=== PATIENT | female | born 1985 | race Caucasian/White ===

== ENCOUNTER 2018-07-15 19:22 | Inpatient (IN) | payer MEDICAID ==
--- NOTE | 2018-07-15 20:29 | ED PDOC ---
HPI: Psych/Substance Abuse Time Seen by Provider: 07/15/18 19:34 Chief Complaint (Nursing): Psychiatric Evaluation Chief Complaint (Provider): Psychiatric Evaluation History Per: EMS History/Exam Limitations: clinical condition Onset/Duration Of Symptoms: Hrs Current Symptoms Are (Timing): Still Present Modifying Factor(s): Alcohol Associated Symptoms: Depression, Suicidal Thoughts, Suicidal Plan Additional Complaint(s): 32 year old female with a history of of depression presents to the ED for a psychiatric evaluation. Patient was found on the ground crying and vomiting by her who arrived home from work at 6pm. Patient took unknown quantity of ibuprofen, Aleve, and Fenofibrate. She also took shots of whisky in an attempt to kill herself. It is unknown of what time she took the medications and unknown if she took any other medication or drugs. PMD: Dr. Muhammad Past Medical History Reviewed: Historical Data, Nursing Documentation, Vital Signs Vital Signs: Last Vital Signs Temp 98.9 F 07/15/18 19:27 Pulse 124 H 07/15/18 19:27 Resp 16 07/15/18 19:27 BP 145/98 H 07/15/18 19:27 Pulse Ox 99 07/15/18 19:27 - Medical History PMH: Depression - Family History Family History: States: Unknown Family Hx - Home Medications Home Medications: Ambulatory Orders Medication Instructions Recorded RX: No Known Home Med 07/15/18 - Allergies Allergies/Adverse Reactions: Allergies Allergy/AdvReac Type Severity Reaction Status Date / Time Penicillins Allergy RASH Verified 07/16/18 03:30 Review of Systems Review Of Systems: ROS cannot be obtained secondary to pt's inabilty to answer questions. Physical Exam - Reviewed Nursing Documentation Reviewed: Yes Vital Signs Reviewed: Yes - Physical Exam Appears: Positive for: In Acute Distress (crying, retching in ER) Head Exam: Positive for: ATRAUMATIC, NORMOCEPHALIC Skin: Positive for: Warm, Dry Eye Exam: Positive for: EOMI, PERRL, Conjunctival injection ENT: Positive for: Pharynx Is (clear) Neck: Positive for: Painless ROM, Supple Cardiovascular/Chest: Positive for: Tachycardia. Negative for: Murmur Respiratory: Positive for: Normal Breath Sounds. Negative for: Respiratory Distress Gastrointestinal/Abdominal: Positive for: Normal Exam, Soft. Negative for: Tenderness, Guarding, Rebound Back: Positive for: Normal Inspection. Negative for: Muscle Spasm Extremity: Positive for: Normal ROM. Negative for: Deformity Lymphatic: Negative for: Adenopathy Neurologic/Psych: Positive for: Alert, Other (depressed mood ). Negative for: Motor/Sensory Deficits - Laboratory Results Result Diagrams: 07/16/18 07:35 07/15/18 20:23 - ECG O2 Sat by Pulse Oximetry: 99 (RA) Pulse Ox Interpretation: Normal Medical Decision Making Medical Decision Making: Time: 1938 Initial Impression: depression, medication overdose VBG shock EKG Acetaminophen Alcohol serum CMP Drug screen Lipase Magnesium Phosphorous Salicylate Poison control ED urine ED urine dipstick CBC w/ differential PTT Prothrombin time Glucose, Poc, Blood Normal Saline 100 mls/hr Pepcid 20mg Zofran Inj traffic monitor specialist IV insertion 1:1 observation Call poison control Reevaluation Poison center called by FRANCINE Tapia. Recommendations given. 10p Per Poison Center, after reviewing results, case closed. On reevaluation, pt appear to be comfortable and no longer vomiting. However she continues to stay quiet when I ask questions concerning events tonight and maintains almost no eye contact. Labs with no significant abnormalities. Stable for psychiatric evaluation. [address] Tan, pending crisis evaluation. Scribe Attestation: Documented by Terra Nicolas, acting as a scribe for Marielena Stevens MD Provider Scribe Attestation: All medical record entries made by the Scribe were at my direction and personally dictated by me. I have reviewed the chart and agree that the record accurately reflects my personal performance of the history, physical exam, medical decision making, and the department course for this patient. I have also personally directed, reviewed, and agree with the discharge instructions and disposition. Disposition - Clinical Impression Clinical Impression: Depression - Patient ED Disposition Is Patient to be Admitted: Transfer of Care (to Dr. Tan) - Disposition Disposition: Transfer of Care Disposition Time: 23:00 Condition: STABLE
[2018-07-15 20:31] LABS: BASO % 0.6 % (0.0-2.0); EOS % 0.2 % (0.0-4.0); LYMPH # 1.3 K/uL (1.0-4.3); LYMPH % 14.5 % (20.0-40.0); MEAN CELL VOLUME 90.8 fl (81.0-99.0); MEAN CORPUSCULAR HEMOGLOBIN 29.5 pg (27.0-31.0); MEAN CORPUSCULAR HGB CONC 32.5 g/dL (33.0-37.0); MEAN PLATELET VOLUME 8.8 fl (7.2-11.7); MONO # 0.4 K/uL (0.0-0.8); MONO % 4.1 % (0.0-10.0); NEUT # 7.1 K/uL (1.8-7.0); NEUT % 80.6 % (50.0-75.0); RBC 5.1 Mil/uL (3.80-5.20); RED CELL DISTRIBUTION WIDTH 15.1 % (11.5-14.5); WHITE BLOOD COUNT 8.8 K/uL (4.8-10.8)
[2018-07-15 20:32] LABS: VENOUS BLOOD GAS BASE EXCESS -3.8 mmol/L (0.0-2.0); VENOUS BLOOD GAS PCO2 39 mmHg (40-60); VENOUS BLOOD GAS PO2 39 mm/Hg (30-55); VENOUS BLOOD PH 7.35 (7.32-7.43)
[2018-07-15 20:47] LABS: INR 1.1; PROTHROMBIN TIME 12.5 Seconds (9.8-13.1)
[2018-07-15 20:48] LABS: ACETAMINOPHEN < 10.0 ug/ml (10.0-30.0); SALICYLATE < 1.0 mg/dl
[2018-07-15 20:50] LABS: PARTIAL THROMBOPLASTIN TIME 25.9 Seconds (25.6-37.1)
[2018-07-15 20:56] LABS: ALBUMIN 4.4 g/dL (3.5-5.0); ALT/SGPT 28 U/L (9-52); AST/SGOT 53 U/L (14-36); BLOOD UREA NITROGEN 12 mg/dl (7-17); CALCIUM 9.4 mg/dL (8.4-10.2); GFR NON-AFRICAN AMERICAN > 60; LIPASE 62 U/L (23-300)
[2018-07-15 22:30] LABS: SQUAMOUS EPITHIAL 5 /hpf (0-5); URINE BACTERIA MOD (<OCC); URINE BILIRUBIN NEGATIVE (NEGATIVE); URINE BLOOD SMALL (NEGATIVE); URINE CLARITY CLOUDY (Clear); URINE COLOR YELLOW (YELLOW); URINE GLUCOSE (UA) NEG (NEGATIVE); URINE LEUKOCYTE ESTERASE TRACE Leu/uL (Negative); URINE PROTEIN NEGATIVE (NEGATIVE); URINE UROBILINOGEN 0.2-1.0 mg/dL (0.2-1.0)
[2018-07-15 22:42] LABS: BARBITURATES, UR NEGATIVE (NEGATIVE); BENZODIAZEPINES, UR NEGATIVE (NEGATIVE); OPIATES, UR NEGATIVE (NEGATIVE); PHENCYCLIDINE, UR NEGATIVE (NEGATIVE)
--- NOTE | 2018-07-15 23:02 | ED PDOC ---
- Laboratory Results Result Diagrams: 07/15/18 20:23 07/15/18 20:23 - ECG O2 Sat by Pulse Oximetry: 99 (RA) Pulse Ox Interpretation: Normal Medical Decision Making Medical Decision Makin Patient endorsed by Dr. Stevens, pending crisis evaluation. [id number] Osman, the psychiatrist, to be admitted for depression. Scribe Attestation: Documented by Shaina Lee, acting as a scribe for Ryan Tan MD. Provider Scribe Attestation: All medical record entries made by the Scribe were at my direction and personally dictated by me. I have reviewed the chart and agree that the record accurately reflects my personal performance of the history, physical exam, medical decision making, and the department course for this patient. Disposition - Clinical Impression Clinical Impression: Depression - POA Present On Arrival: None - Disposition Disposition: Admitted as In-Patient Disposition Time: 01:19 Condition: STABLE
[2018-07-16] MEDS ORDERED: Magnesium Hydroxide Susp 30 ml UD PO PRN (03:00)
[2018-07-16] MEDS ORDERED: DiphenhydrAMINE 50 mg/ml Inj IM PRN (03:00)
[2018-07-16] MEDS ORDERED: Alum-Mag Hydrox-Simethicone Susp (30 mL) PO PRN (03:00)
--- NOTE | 2018-07-16 03:22 | PCM.BM ---
<TremaineBerna Jyoti - Last Filed: 07/16/18 03:20> Treatment Plan Problems - Problems identified on initial assessmt Mediaction nonadherence Date Initiated: 07/16/18 Time Initiated: 03:20 Assessment reference: NA Status: Active Self Harm Date Initiated: 07/16/18 Time Initiated: 03:21 Assessment reference: NA Status: Active Suicidal Ideation Date Initiated: 07/16/18 Time Initiated: 03:22 Assessment reference: NA Status: Active Hopelessness/Helplessness Date Initiated: 07/16/18 Time Initiated: 03:22 Assessment reference: NA Status: Active Altered Sleep Patterns Date Initiated: 07/16/18 Time Initiated: 03:23 Assessment reference: NA Status: Active Treatment assets and liabiliti Patient Assests: adapts well, cooperative, self-reliant, ADL independent, good support system, negotiates basic needs (Recent loss, Hx of depression) - Milieu Protocol Maintain good personal hygiene: daily Encourage regular showers, every shift Remind patient to perform daily oral care Conduct patient checks and document Observation sheet: Q15 minutes Maintain personal safety: every shift Educate patient to report safety concerns to staff, every shift Monitor environment for contraband/sharps Medication safety: Monitor for expected outcome, potential side effects: every shift, Assess barriers to learning: every shift, Assess readiness for medication education: every shift <Raj Calderon - Last Filed: 07/17/18 15:22> Family Contact Family involvement: Family/SO is involved Family contact: Patient agrees to contact, Family has been contacted by patient, Telephone contact initiated by staff Family contact name: Vashti - [phone] - Goals for Treatment Patient goals for treatment: Pt offered no goals for treatment at this time and is repeatedly asking to be discharged despite her impulsive attempt to end her life. Pt appears to lack insight into her stressors and is putting up yang to protect herself from confronting her emotions. Discharge/Continuing Care - Education Needs Education Needs: Patient Medication, Patient Diagnosis/Disease Process, Patient Coping Skills, Patient Community resources, Patient Aftercare Safety Plan - Discharge Discharge Criteria: Tolerates medication w/o severe side effects, Free of Suicidal thoughts, Normal sleep pattern, Reduction of target symptoms Discharge to:: Home, With Family - Treatment Team Participation Patient/Family/SO Statement: 07/17/18 16:14 Pt seen in treatment team on 07/17/18. Pt reported she is feeling "good." Chip [employer] hospital admissions clerk, Henny [id number], was used to translate in pt's [place] language. Pt remained guarded, superficial and discharge focused with cylinder press operator helper. Pt reported that the unit feels like long term and she wants to begin a new start with her life at home with her family. Pt again expressed remorse and was able to verbalize reasons to live. Anti-depressant and Abilify discussed and pt denied current side-effects. Pt denied current Si/HI and AVT hallucinations. Discussed with Family/SO: No Was Patient/Family/SO present at Treatment Team Meeting: Yes <Rayna Osman - Last Filed: 07/19/18 11:19> - Diagnosis (1) Depression Status: Acute Interventions: psychotherapy, pharmacotherapy 07/19/18 11:19
[2018-07-16 04:29] VITALS: O2SAT 99
[2018-07-16 07:54] LABS: MEAN CELL VOLUME 93.5 fl (81.0-99.0); MEAN CORPUSCULAR HEMOGLOBIN 29.8 pg (27.0-31.0); MEAN CORPUSCULAR HGB CONC 31.9 g/dL (33.0-37.0); RBC 4.71 Mil/uL (3.80-5.20); RED CELL DISTRIBUTION WIDTH 14.8 % (11.5-14.5); WHITE BLOOD COUNT 11.5 K/uL (4.8-10.8)
[2018-07-16 08:12] LABS: T4 8.36 ug/dl (5.5-11.0)
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
--- NOTE | 2018-07-16 18:25 | CARD ---
APPROVED REPORT Date of service: 07/15/2018 EKG Measurement Heart [id number] <Conclusion> Sinus tachycardia Otherwise normal ECG
--- NOTE | 2018-07-16 20:16 | CP.PCM.CON ---
History of Present Illness - History of Present Illness History of Present Illness: 32 yo female with history of depression admitted to psyche unit because of suicidal ideation Review of Systems - Review of Systems All systems: reviewed and no additional remarkable complaints except (aside from those mentioned above, 12 point system review were negative by me) Past Patient History - Tetanus Immunizations Tetanus Immunization: Unknown - Past Social History Smoking Status: Never Smoked Chewing Tobacco Use: No Cigar Use: No Alcohol: None Drugs: Denies - CARDIAC Hx Cardiac Disorders: No Hx Hypercholesterolemia: Yes Hx Hypertension: No - PULMONARY Hx Tuberculosis: No - NEUROLOGICAL HX Cerebrovascular Accident: No Hx Seizures: No - HEMATOLOGICAL/ONCOLOGICAL Hx Cancer: No Hx Human Immunodeficiency Virus (HIV): No - GENITOURINARY/GYNECOLOGICAL Hx Sexually Transmitted Disorders: No - PSYCHIATRIC Hx Depression: Yes Hx Substance Use: No - SURGICAL HISTORY Hx Cholecystectomy: Yes - ANESTHESIA Hx Anesthesia: Yes Hx Anesthesia Reactions: No Hx Malignant Hyperthermia: No Has any member of the family had a problem w/ anesthesia?: No Meds Allergies/Adverse Reactions: Allergies Allergy/AdvReac Type Severity Reaction Status Date / Time Penicillins Allergy RASH Verified 07/16/18 03:30 - Medications Medications: Current Medications Al Hydrox/Mg Hydrox/Simethicone (Maalox Plus 30 Ml) 30 ml PO Q4 PRN PRN Reason: Dyspepsia Diphenhydramine HCl (Benadryl) 50 mg IM Q6 PRN PRN Reason: Extrapyramidal S/S Unable PO Diphenhydramine HCl (Benadryl) 50 mg PO Q6 PRN PRN Reason: Extrapyramidal Symptoms Diphenhydramine HCl (Benadryl) 50 mg PO HS PRN PRN Reason: Sleep Escitalopram Oxalate (Lexapro) 5 mg PO HS SEDRICK Haloperidol (Haldol) 5 mg PO Q4 PRN PRN Reason: Agitation Haloperidol Lactate (Haldol) 5 mg IM Q4 PRN PRN Reason: Agitation, Unable to Take PO Dextrose/Sodium Chloride (Dextrose 5%-0.9% Ns 500 Ml) 1,000 mls @ 100 mls/hr IV .Q10H [facility] Last Admin: 07/15/18 20:27 Dose: 100 mls/hr Magnesium Hydroxide (Milk Of Magnesia) 30 ml PO HS PRN PRN Reason: Constipation Trazodone HCl (Desyrel) 50 mg PO HS PRN PRN Reason: Insomnia Physical Exam - Constitutional Appears: No Acute Distress - Head Exam Head Exam: ATRAUMATIC - Eye Exam Eye Exam: absent: Scleral icterus - ENT Exam ENT Exam: Mucous Membranes Moist - Neck Exam Neck exam: Negative for: Meningismus - Respiratory Exam Respiratory Exam: absent: Rales, Rhonchi, Wheezes, Respiratory Distress - Cardiovascular Exam Cardiovascular Exam: REGULAR RHYTHM, +S1, +S2 - GI/Abdominal Exam GI & Abdominal Exam: Soft. absent: Tenderness - Rectal Exam Rectal Exam: Deferred - Extremities Exam Extremities exam: Negative for: pedal edema - Back Exam Back exam: NORMAL INSPECTION - Neurological Exam Neurological exam: Alert, Oriented x3 - Psychiatric Exam Psychiatric exam: Normal Affect - Skin Skin Exam: Dry, Intact Results - Vital Signs Recent Vital Signs: Last Vital Signs Temp 97.3 F L 07/16/18 09:04 Pulse 99 H 07/16/18 09:04 Resp 20 07/16/18 09:04 BP 132/82 07/16/18 09:04 Pulse Ox 99 07/16/18 04:29 - Labs Result Diagrams: 07/16/18 07:35 07/15/18 20:23 Labs: Laboratory Results - last 24 hr 07/15/18 07/15/18 07/15/18 20:23 20:23 20:23 WBC 8.8 RBC 5.10 Hgb 15.0 Hct 46.3 MCV 90.8 MCH 29.5 MCHC 32.5 L RDW 15.1 H Plt Count 289 MPV 8.8 Neut % (Auto) 80.6 H Lymph % (Auto) 14.5 L [place] % (Auto) 4.1 Eos % (Auto) 0.2 Baso % (Auto) 0.6 Neut # (Auto) 7.1 H Lymph # (Auto) 1.3 [place] # (Auto) 0.4 Eos # (Auto) 0.0 Baso # (Auto) 0.0 PT INR APTT pO2 VBG pH VBG pCO2 VBG HCO3 VBG Total CO2 VBG O2 Sat (Calc) VBG Base Excess VBG Potassium Glucose Lactate FiO2 Sodium 140 Potassium 6.2 H* Chloride 108 H Carbon Dioxide 18 L Anion Gap 20 BUN 12 Creatinine 0.8 Est GFR ( Amer) > 60 Est GFR (Non-Af Amer) > 60 Random Glucose 82 Hemoglobin A1c Calcium 9.4 Phosphorus 4.0 Magnesium 2.3 Total Bilirubin 1.1 AST 53 H ALT 28 Alkaline Phosphatase 74 Total Protein 9.1 H Albumin 4.4 Globulin 4.6 H Albumin/Globulin Ratio 1.0 Triglycerides Cholesterol LDL Cholesterol Direct HDL Cholesterol Lipase 62 Thyroxine (T4) TSH 3rd Generation Venous Blood Potassium Urine Color Urine Clarity Urine pH Ur Specific [place] Urine Protein Urine Glucose (UA) Urine Ketones Urine Blood Urine Nitrate Urine Bilirubin Urine Urobilinogen Ur Leukocyte Esterase Urine RBC (Auto) Urine Microscopic WBC Ur Squamous Epith Cells Urine Bacteria Salicylates < 1.0 Urine Opiates Screen Urine Methadone Screen Acetaminophen < 10.0 L Ur Barbiturates Screen Ur Phencyclidine Scrn Ur Amphetamines Screen U Benzodiazepines Scrn U Oth Cocaine Metabols U Cannabinoids Screen Alcohol, Quantitative < 10 RPR 07/15/18 07/15/18 07/15/18 20:23 20:29 22:10 WBC RBC Hgb Hct MCV MCH MCHC RDW Plt Count MPV Neut % (Auto) Lymph % (Auto) [place] % (Auto) Eos % (Auto) Baso % (Auto) Neut # (Auto) Lymph # (Auto) [place] # (Auto) Eos # (Auto) Baso # (Auto) PT 12.5 INR 1.1 APTT 25.9 pO2 39 VBG pH 7.35 VBG pCO2 39 L VBG HCO3 21.2 VBG Total CO2 22.7 VBG O2 Sat (Calc) 76.1 H VBG Base Excess -3.8 L VBG Potassium 4.1 Glucose 79 Lactate 1.5 FiO2 21.0 Sodium 138.0 Potassium Chloride 107.0 Carbon Dioxide Anion Gap BUN Creatinine Est GFR ( Amer) Est GFR (Non-Af Amer) Random Glucose Hemoglobin A1c Calcium Phosphorus Magnesium Total Bilirubin AST ALT Alkaline Phosphatase Total Protein Albumin Globulin Albumin/Globulin Ratio Triglycerides Cholesterol LDL Cholesterol Direct HDL Cholesterol Lipase Thyroxine (T4) TSH 3rd Generation Venous Blood Potassium 4.1 Urine Color Urine Clarity Urine pH Ur Specific [place] Urine Protein Urine Glucose (UA) Urine Ketones Urine Blood Urine Nitrate Urine Bilirubin Urine Urobilinogen Ur Leukocyte Esterase Urine RBC (Auto) Urine Microscopic WBC Ur Squamous Epith Cells Urine Bacteria Salicylates Urine Opiates Screen Negative Urine Methadone Screen Negative Acetaminophen Ur Barbiturates Screen Negative Ur Phencyclidine Scrn Negative Ur Amphetamines Screen Negative U Benzodiazepines Scrn Negative U Oth Cocaine Metabols Negative U Cannabinoids Screen Negative Alcohol, Quantitative RPR 07/15/18 07/16/18 07/16/18 22:15 07:35 07:35 WBC RBC Hgb Hct MCV MCH MCHC RDW Plt Count MPV Neut % (Auto) Lymph % (Auto) [place] % (Auto) Eos % (Auto) Baso % (Auto) Neut # (Auto) Lymph # (Auto) [place] # (Auto) Eos # (Auto) Baso # (Auto) PT INR APTT pO2 VBG pH VBG pCO2 VBG HCO3 VBG Total CO2 VBG O2 Sat (Calc) VBG Base Excess VBG Potassium Glucose Lactate FiO2 Sodium Potassium Chloride Carbon Dioxide Anion Gap BUN Creatinine Est GFR ( Amer) Est GFR (Non-Af Amer) Random Glucose Hemoglobin A1c 5.4 Calcium Phosphorus Magnesium Total Bilirubin AST ALT Alkaline Phosphatase Total Protein Albumin Globulin Albumin/Globulin Ratio Triglycerides 112 Cholesterol 279 H LDL Cholesterol Direct 182 H HDL Cholesterol 44 Lipase Thyroxine (T4) 8.36 TSH 3rd Generation 0.44 L Venous Blood Potassium Urine Color Yellow Urine Clarity Cloudy Urine pH 5.0 Ur Specific [place] 1.012 Urine Protein Negative Urine Glucose (UA) Neg Urine Ketones Trace Urine Blood Small Urine Nitrate Negative Urine Bilirubin Negative Urine Urobilinogen 0.2-1.0 Ur Leukocyte Esterase Trace Urine RBC (Auto) 5 H Urine Microscopic WBC 12 H Ur Squamous Epith Cells 5 Urine Bacteria Mod H Salicylates Urine Opiates Screen Urine Methadone Screen Acetaminophen Ur Barbiturates Screen Ur Phencyclidine Scrn Ur Amphetamines Screen U Benzodiazepines Scrn U Oth Cocaine Metabols U Cannabinoids Screen Alcohol, Quantitative RPR 07/16/18 07/16/18 07:35 07:35 WBC 11.5 H RBC 4.71 Hgb 14.0 Hct 44.0 MCV 93.5 D MCH 29.8 MCHC 31.9 L RDW 14.8 H Plt Count 265 MPV Neut % (Auto) Lymph % (Auto) [place] % (Auto) Eos % (Auto) Baso % (Auto) Neut # (Auto) Lymph # (Auto) [place] # (Auto) Eos # (Auto) Baso # (Auto) PT INR APTT pO2 VBG pH VBG pCO2 VBG HCO3 VBG Total CO2 VBG O2 Sat (Calc) VBG Base Excess VBG Potassium Glucose Lactate FiO2 Sodium Potassium Chloride Carbon Dioxide Anion Gap BUN Creatinine Est GFR ( Amer) Est GFR (Non-Af Amer) Random Glucose Hemoglobin A1c Calcium Phosphorus Magnesium Total Bilirubin AST ALT Alkaline Phosphatase Total Protein Albumin Globulin Albumin/Globulin Ratio Triglycerides Cholesterol LDL Cholesterol Direct HDL Cholesterol Lipase Thyroxine (T4) TSH 3rd Generation Venous Blood Potassium Urine Color Urine Clarity Urine pH Ur Specific [place] Urine Protein Urine Glucose (UA) Urine Ketones Urine Blood Urine Nitrate Urine Bilirubin Urine Urobilinogen Ur Leukocyte Esterase Urine RBC (Auto) Urine Microscopic WBC Ur Squamous Epith Cells Urine Bacteria Salicylates Urine Opiates Screen Urine Methadone Screen Acetaminophen Ur Barbiturates Screen Ur Phencyclidine Scrn Ur Amphetamines Screen U Benzodiazepines Scrn U Oth Cocaine Metabols U Cannabinoids Screen Alcohol, Quantitative RPR Nonreactive Assessment & Plan (1) Depression Status: Acute Comment: psyche is managing (2) Suicidal ideation Status: Acute
--- NOTE | 2018-07-17 13:04 | PCM.PYCHPN ---
Psychiatric Progress Note - Psychiatric Progress Note Patient seen today, length of contact: pt evaluated discussed with team chart reviewed Patient Chief Complaint: I am tired Problems Identified/Issues Discussed: pt evaluated with treatment team continues to be guarded evasive, presenting with isolation of affect, CBT and supportive therapy provided discussed with pt importance of talking about her emotions and the grieving process , discussed about importance of attending groups and receiving therapy on discharge , pt denied side effects of lexapro, discussed increasing dose and adding abilify pt denied active thoughts of self harm on the unit denied command hallucinations Medical Problems: one episode of depression a year ago DSM 5 Symptoms Update: major depression recurrent severe Medication Change: Yes (increase lexapro) Medical Record Reviewed: Yes Mental Status Examination - Cognitive Function Orientation: Person, Place Attention: WNL Concentration: WNL Fund of Knowledge: WNL Decription of patient's judgement and insights: partial insight , poor impulse control - Mood Mood: Depressed - Affect Affect: Blunted Additional comments: guarded with isolation of affect - Speech Speech: Soft - Suicidal Ideation Suicidal Ideation: Yes - Homicidal Ideation Homicidal Ideation: No Goal/Treatment Plan - Goal/Treatment Plan Need for Continued Stay: Discharge may exacerbated symptoms Progress Toward Problem(s) and Goals/Treatment Plan: increase lexapro 10mg qhs start abilify 2mg qhs CBT group and supportive therapy
[2018-07-18 09:12] VITALS: RESP 18
--- NOTE | 2018-07-18 11:46 | PCM.PYCHPN ---
Psychiatric Progress Note - Psychiatric Progress Note Patient seen today, length of contact: pt evaluated discussed with team chart reviewed Patient Chief Complaint: I feel a little better Problems Identified/Issues Discussed: pt evaluated, more interactive with the appeals writer, less guarded, continues to be depressed when talking about loosing the fetus, no reported side effects with adding abilify , pt encouraged to attend groups pt denied active thoughts of self harm on the unit denied command hallucinations Medical Problems: one episode of depression a year ago DSM 5 Symptoms Update: major depression recurrent severe Medication Change: No (increase lexapro) Medical Record Reviewed: Yes Mental Status Examination - Cognitive Function Orientation: Person, Place Attention: WNL Concentration: WNL Fund of Knowledge: WNL Decription of patient's judgement and insights: partial insight , poor impulse control - Mood Mood: Depressed - Affect Affect: Blunted - Speech Speech: Soft - Suicidal Ideation Suicidal Ideation: Yes - Homicidal Ideation Homicidal Ideation: No Goal/Treatment Plan - Goal/Treatment Plan Need for Continued Stay: Discharge may exacerbated symptoms Progress Toward Problem(s) and Goals/Treatment Plan: lexapro 10mg qhs abilify 2mg qhs CBT group and supportive therapy
--- NOTE | 2018-07-19 12:22 | PCM.PYCHPN ---
Psychiatric Progress Note - Psychiatric Progress Note Patient seen today, length of contact: pt evaluated discussed with team chart reviewed Patient Chief Complaint: I miss my daughter Problems Identified/Issues Discussed: pt evaluated,seen in day room, , less isolative more interactive with the real estate underwriter, less guarded, reported better mood, brighter affect, no reported side effects of medications pt denied active thoughts of self harm on the unit denied command hallucinations Medical Problems: one episode of depression a year ago Medication Change: No Medical Record Reviewed: Yes Mental Status Examination - Cognitive Function Orientation: Person, Place Attention: WNL Concentration: WNL Fund of Knowledge: WNL Decription of patient's judgement and insights: partial insight , poor impulse control - Mood Mood: Depressed - Affect Affect: Blunted - Speech Speech: Soft - Suicidal Ideation Suicidal Ideation: Yes - Homicidal Ideation Homicidal Ideation: No Goal/Treatment Plan - Goal/Treatment Plan Need for Continued Stay: Discharge may exacerbated symptoms Progress Toward Problem(s) and Goals/Treatment Plan: lexapro 10mg qhs abilify 2mg qhs CBT group and supportive therapy
[2018-07-20 09:40] VITALS: BP 142/88; PULSE 87; TEMP 98.2
--- NOTE | 2018-07-20 12:54 | PCM.PYCHDC ---
Mental Status Examination - Mental Status Examination Orientation: Person, Place, Situation Memory: Intact Mood: Neutral Affect: Broad Speech: Appropriate Attention: WNL Concentration: WNL Association: WNL Fund of Knowledge: WNL Formal Thought Process: No Impairment Description of patient's judgement and insight: fair insight and judgment Psychotic Thoughts and Behaviors: pt denied perceptual disturbances, non elicited Suicidal Ideation: No Current Homicidal Ideation?: No Discharge Summary - Discharge Note Reason for Hospitalization: pt is 32 ys old female with previous psychiatric diagnosis of depression currently not in formal treatment , brought to ER by after a suicidal attempt by overdose on medications, pt had an episode of depression last year,received treatment for only three months, pt recently had to terminate a 26 weeks old due to congenital anomalies in the fetus since then became increasingly depressed, tearful isolative , on day of evaluation pt was increasingly overwhelmed attempted to end her life by overdose on advil and other medications, was found by the on the unit pt continues to isolate herself in her room, guarded and evasive minimizing her suicidal attempt, poor eye contact, psychomotor retardation underproductive speech with isolation of affect, denied active thoughts of self harm on the unit, denied perceptual disturbances Consultations:: List each consultation separately and include: 1. Reason for request. 2. Findings. 3. Follow-up Summary of Hospital Course include:: 1. Description of specific treatment plan utilized for patients during their course of treatmen. 2. Summarize the time-c ourse for resolution of acute symptoms and/or regressed behaviors. 3. Describe issues identified and worked on during hospitalization. 4. Describe medication utilized. 5. Describe medical problems identified and treated. 6. Reassessment of suicide risk Summary of Hospital Course: pt on admission presented with depressed mood and affect was guarded evasive, isolation of affect, staying in her room pt was started on lexapro and abilify, CBT group and supportive therapy provided pt was compliant with medications, attended groups, no reported side effect of medication gradually presented with brighter affect, reported mood less depressed and was able to verbalize healthier coping skills with stress other than self harm on discharge, mental status was stable, pt denied any current suicidal or homicidal ideation denied perceptual disturbances follow up arranged by social work lecturer at [facility] outpatient clinic - Diagnosis (1) Depression Current Visit: Yes Status: Acute - Final Diagnosis (DSM 5) Condition upon Discharge: STABLE DSM 5: major depression recurrent severe Disposition: HOME/ ROUTINE Follow-up Treatment Plan: lexapro 10mg qhs abilify 2mg qhs CBT group and supportive therapy Prescriptions/Medication Reconciliation: ARIPiprazole [Abilify] 2 mg PO HS 30 Days #30 tab Escitalopram [Lexapro] 10 mg PO HS 30 Days #30 tab traZODone [Desyrel] 50 mg PO HS PRN 30 Days #30 tab PRN Reason: Insomnia - Antipsychotic Medications Pt discharged on 2 or more routine antipsychotic medications: No
== END 2018-07-20 15:00 | disposition home or self-care (01) | DRG 430 ==
LOC: H.ER 19:22 → H.ERHOLD 07-16 01:19 → H.PSYCH 07-16 02:52
PROVIDERS: ADMIT Psychiatry & Neurology Psychiatry; ATTEND Psychiatry & Neurology Psychiatry
PROC: GZHZZZZ Group Psychotherapy (ICD-10-PCS; principal; 2018-07-16)
PROC: GZ58ZZZ Individual Psychotherapy, Cognitive-Behavioral (ICD-10-PCS; 2018-07-16)
DX: F33.2 Major depressive disorder, recurrent severe without psychotic features (principal); R45.851 Suicidal ideations; Z91.5 Personal history of self-harm; E78.00 Pure hypercholesterolemia, unspecified; Z62.810 Personal history of physical and sexual abuse in childhood; Z88.0 Allergy status to penicillin